=== PATIENT | male | born 1950 | race Hispanic/Latino ===

== ENCOUNTER 2020-11-05 19:48 | Emergency (ER) | payer MEDICARE ==
[~2020-11-05] VITALS: Ht 170.2 cm; Wt 82.1 kg
[2020-11-05] MEDS ORDERED: SODIUM CHLORIDE 0.9% 1000ML 1,000 ML IV STA (20:19)
[2020-11-05] MEDS ORDERED: INSULIN REGULAR, HUMAN 100 UNIT/1 ML 3ML VIAL IV ONE (20:30)
[2020-11-05] MEDS ORDERED: INSULIN REGULAR, HUMAN 100 UNIT/1 ML 3ML VIAL ONE (20:51)
[2020-11-05] MEDS ORDERED: SODIUM CHLORIDE 0.9% 1000ML 1,000 ML ONE (20:51)
[2020-11-05 22:18] VITALS: BP 113/71
== END 2020-11-05 22:18 | disposition home or self-care (01) ==
LOC: FSED 20:40
DX: E11.65 Type 2 diabetes mellitus with hyperglycemia (principal); I10 Essential (primary) hypertension; E78.00 Pure hypercholesterolemia, unspecified
CPT/HCPCS: 36415; 82948; 99283; J1817; J7030